=== PATIENT | female | born 1995 | race Caucasian/White ===

== ENCOUNTER 2017-05-23 14:38 | Emergency (ER) | payer OTHER ==
--- NOTE | 2017-05-23 14:42 | EDPHY ---
H & P Time Seen by Provider: 05/23/17 14:38 HPI/ROS: CHIEF COMPLAINT: Alcohol intoxication HISTORY OF PRESENT ILLNESS: The patient is a 22-year-old female brought in by EMS with alcohol intoxication. [place] Drinking alcohol morning, including Mimosas and beer. Her last alcoholic beverage was 1 hour ago. The patient had difficulty ambulating and was vomiting. Vitals in the field were normal, BP: 128/81, HR: 109, O2 saturation 92 % on room air. REVIEW OF SYSTEMS: A comprehensive 10 point review of systems is otherwise negative aside from elements mentioned in the history of present illness. Past Medical/Surgical History: Alcoholism Social History: [employer] student. Physical Exam: General Appearance: Alert, pleasant, slurred speech Eyes: Pupils equal and round, no conjunctival injection ENT, Mouth: Mucous membranes moist Neck: Normal inspection Respiratory: Lungs are clear to auscultation Cardiovascular: Regular rate and rhythm Gastrointestinal: Abdomen is soft and non-tender Neurological: A&O, nonfocal exam Skin: Warm and dry, no rash Extremities: Ecchymosis bilateral knees Psychiatric: Flat affect Constitutional: Initial Vital Signs Temperature (C) 36.9 C 05/23/17 14:41 Heart Rate 90 05/23/17 14:41 Respiratory Rate 16 05/23/17 14:41 Blood Pressure 122/83 H 05/23/17 14:41 O2 Sat (%) 97 05/23/17 14:41 O2 Delivery Mode Room Air Allergies/Adverse Reactions: No Known Allergies Allergy (Unverified 07/27/14 02:17) Home Medications: Medication Instructions Recorded Cephalexin [Keflex (*)] 500 mg PO TID #21 cap 07/27/14 Lo Loestrin Fe 1-10 Tablet 07/27/14 Medical Decision Making ED Course/Re-evaluation: Patient brought in by EMS presents with alcohol intoxication. IV was established , patient received 4mg Zofran IV. Plan for continued monitoring. I will re- examine the patient when she is more sober. On discharge, the patient was alert and oriented and able to walk with a steady gait. She was discharged home with sober friends. Differential Diagnosis: Differential diagnosis includes does not limited to hypoglycemia, respiratory compromise, fracture related to fall. - Data Points Medications Given: Discontinued Medications Ondansetron HCl (Zofran) 4 mg IVP EDNOW ONE Stop: 05/23/17 14:47 Last Admin: 05/23/17 14:48 Dose: 4 mg Departure - Departure Disposition: Home, Routine, Self-Care Clinical Impression: Alcohol intoxication Qualifiers: Complication of substance-induced condition: uncomplicated Qualified Code(s): F10.920 - Alcohol use, unspecified with intoxication, uncomplicated Condition: Good Instructions: Alcohol Intoxication (ED) Additional Instructions: You have been referred to the ground operations superintendent primary care physician. Please follow up as needed. Referrals: Alejandro Hawk MD [Medical Doctor] - As per Instructions Report Scribed for: Yadira Smith Report Scribed by: Cora Patino Date of Report: 05/23/17 Time of Report: 14:39 Physician Review and Approval Statement: 05/23/17 14:39 Portions of this note were transcribed by a medical assistant secretary. I personally performed the history, physical exam, and medical decision-making; and confirmed the accuracy of the information in the transcribed note.
--- NOTE | 2017-05-23 14:42 | EDPHY ---
H & P Time Seen by Provider: 05/23/17 14:38 HPI/ROS: CHIEF COMPLAINT: Alcohol intoxication HISTORY OF PRESENT ILLNESS: The patient is a 22-year-old female brought in by EMS with alcohol intoxication. [place] Drinking alcohol morning, including Mimosas and beer. Her last alcoholic beverage was 1 hour ago. The patient had difficulty ambulating and was vomiting. Vitals in the field were normal, BP: 128/81, HR: 109, O2 saturation 92 % on room air. REVIEW OF SYSTEMS: A comprehensive 10 point review of systems is otherwise negative aside from elements mentioned in the history of present illness. Past Medical/Surgical History: Alcoholism Social History: [employer] student. Physical Exam: General Appearance: Alert, pleasant, slurred speech Eyes: Pupils equal and round, no conjunctival injection ENT, Mouth: Mucous membranes moist Neck: Normal inspection Respiratory: Lungs are clear to auscultation Cardiovascular: Regular rate and rhythm Gastrointestinal: Abdomen is soft and non-tender Neurological: A&O, nonfocal exam Skin: Warm and dry, no rash Extremities: Ecchymosis bilateral knees Psychiatric: Flat affect Constitutional: Initial Vital Signs Temperature (C) 36.9 C 05/23/17 14:41 Heart Rate 90 05/23/17 14:41 Respiratory Rate 16 05/23/17 14:41 Blood Pressure 122/83 H 05/23/17 14:41 O2 Sat (%) 97 05/23/17 14:41 O2 Delivery Mode Room Air Allergies/Adverse Reactions: No Known Allergies Allergy (Unverified 07/27/14 02:17) Home Medications: Medication Instructions Recorded Cephalexin [Keflex (*)] 500 mg PO TID #21 cap 07/27/14 Lo Loestrin Fe 1-10 Tablet 07/27/14 Medical Decision Making ED Course/Re-evaluation: Patient brought in by EMS presents with alcohol intoxication. IV was established , patient received 4mg Zofran IV. Plan for continued monitoring. I will re- examine the patient when she is more sober. On discharge, the patient was alert and oriented and able to walk with a steady gait. She was discharged home with sober friends. Differential Diagnosis: Differential diagnosis includes does not limited to hypoglycemia, respiratory compromise, fracture related to fall. - Data Points Medications Given: Discontinued Medications Ondansetron HCl (Zofran) 4 mg IVP EDNOW ONE Stop: 05/23/17 14:47 Last Admin: 05/23/17 14:48 Dose: 4 mg Departure - Departure Disposition: Home, Routine, Self-Care Clinical Impression: Alcohol intoxication Qualifiers: Complication of substance-induced condition: uncomplicated Qualified Code(s): F10.920 - Alcohol use, unspecified with intoxication, uncomplicated Condition: Good Instructions: Alcohol Intoxication (ED) Additional Instructions: You have been referred to the business operations analyst primary care physician. Please follow up as needed. Referrals: Alejandro Hawk MD [Medical Doctor] - As per Instructions Report Scribed for: Yadira Smith Report Scribed by: Cora Patino Date of Report: 05/23/17 Time of Report: 14:39 Physician Review and Approval Statement: 05/23/17 14:39 Portions of this note were transcribed by a medical equipment repair technician. I personally performed the history, physical exam, and medical decision-making; and confirmed the accuracy of the information in the transcribed note.
[2017-05-23] MEDS ORDERED: ONDANSETRON 4 MG/2 ML VIAL IVP ONE (14:46)
[2017-05-23] MEDS ORDERED: ONDANSETRON 4 MG/2 ML VIAL ONE (14:47)
[2017-05-23 16:10] VITALS: BP 124/92; PULSE 72; RESP 12; TEMP 97.3; O2SAT 93
== END 2017-05-23 16:10 | disposition home or self-care (01) ==
LOC: EDUNIT#
DX: F10.920 Alcohol use, unspecified with intoxication, uncomplicated (principal)
CPT/HCPCS: 96374; J2405